=== PATIENT | male | born 1950 | race Caucasian/White ===

== ENCOUNTER 2023-01-31 18:05 | Emergency (ER) | payer OTHER ==
[~2023-01-31] VITALS: Ht 170.2 cm; Wt 74.8 kg
[2023-01-31] MEDS ORDERED: AMLO10TA59 PO (18:23)
[2023-01-31] MEDS ORDERED: CLONIDINE HCL 0.1 MG TABLET PO ONE (18:30)
[2023-01-31] MEDS ORDERED: ENALAPRILAT DIHYDRATE 1.25 MG/1 ML VIAL IV ONE ×2 (18:30→18:39)
[2023-01-31] MEDS ORDERED: NITROGLYCERIN 0.4 MG/TAB BOTTLE SL ONE ×2 (18:39→18:45)
[2023-01-31] MEDS ORDERED: ASPIRIN 325 MG TABLET ONE (18:40)
[2023-01-31] MEDS ORDERED: CLONIDINE HCL 0.1 MG TABLET ONE (18:40)
[2023-01-31] MEDS ORDERED: NITROGLYCERIN OINT 1 GM PACKET TP ONE ×2 (18:40→18:45)
[2023-01-31] MEDS ORDERED: ASPIRIN 81 MG TAB.CHEW ONE (18:42)
[2023-01-31] MEDS ORDERED: ASPIRIN 81 MG TAB.CHEW PO ONE (18:45)
[2023-01-31 19:11] LABS: BASOPHILS % (AUTO) 0.3 % (0.0-2.0); EOSINOPHILS # (AUTO) 0.1 K/uL (0.0-0.7); EOSINOPHILS % (AUTO) 1.9 % (0.0-7.0); HEMATOCRIT 41.4 % (36.7-47.1); HEMOGLOBIN 13.8 g/dL (12.5-16.3); LYMPHOCYTES % (AUTO) 33.2 % (20.5-51.5); MEAN CORPUSCULAR HEMOGLOBIN 27.6 uug (23.8-33.4); MEAN CORPUSCULAR HGB CONC 33 g/dL (32.5-36.3); MONOCYTES # (AUTO) 0.4 K/uL (0.1-1.30); MONOCYTES % (AUTO) 7.2 % (0.0-11.0); NEUTROPHILS # (AUTO) 3.5 K/uL (1.8-8.9); NEUTROPHILS % (AUTO) 57.4 % (38.5-71.5); PLATELET COUNT (AUTO) 190 K/uL (152-348); RED BLOOD CELL COUNT(AUTO) 4.99 MIL/uL (4.06-5.63); RED CELL DISTRIBUTION WIDTH 13.9 % (12.1-16.2); WHITE BLOOD COUNT (AUTO) 6.1 K/uL (3.6-10.2)
[2023-01-31 19:12] LABS: DIFFERENTIAL COMMENT 1
[2023-01-31 19:21] LABS: CALCIUM 9.1 mg/dL (8.5-10.1); CARBON DIOXIDE 27 mmol/L (21-32); CHLORIDE 105 mmol/L (98-107); GLUCOSE 106 mg/dL (74-106); POTASSIUM 3.4 mmol/L (3.5-5.1); SODIUM SERUM 144 mmol/L (136-145); UREA NITROGEN, BLOOD 14 mg/dL (7-18)
[2023-01-31 19:49] LABS: ALANINE AMINOTRANSFERASE 17 U/L (16-63); ALBUMIN 4.4 g/dL (3.4-5.0); ALKALINE PHOSPHATASE 133 U/L (50-136); ASPARTATE AMINOTRANSFERASE 18 U/L (15-37); BILIRUBIN,DIRECT 0.1 mg/dL (0.0-0.2); BILIRUBIN,TOTAL 0.5 mg/dL (0.2-1.0); NT-PRO BNP 466 pg/mL (0-125); TOTAL PROTEIN, SERUM 8.7 g/dL (6.4-8.2)
[2023-01-31] MEDS ORDERED: CLON0.1T PO (22:27)
[2023-01-31] MEDS ORDERED: AMLO-212 PO (22:27)
[2023-01-31 23:07] VITALS: BP 118/78; TEMP 98; O2SAT 99
== END 2023-01-31 23:09 | disposition home or self-care (01) ==
LOC: ER 18:10
DX: I10 Essential (primary) hypertension (principal); R07.89 Other chest pain; Z79.899 Other long term (current) drug therapy
CPT/HCPCS: 99285; 96374; 71045; 80076; 80048; 83880; 85025; 84484 ×2; 36415; 93005; J3490; A4663